=== PATIENT | female | born 1945 | race Caucasian/White ===

== ENCOUNTER 2021-10-16 15:58 | Inpatient (IN) | payer MEDICARE, OTHER ==
[~2021-10-16] VITALS: Ht 167.6 cm; Wt 90.3 kg
[2021-10-16] MEDS ORDERED: HYDR-3641 PO (16:20)
[2021-10-16] MEDS ORDERED: BUSP10TA3 PO (16:20)
[2021-10-16] MEDS ORDERED: CITA20TA16 PO (16:20)
--- NOTE | 2021-10-16 16:23 | NUR ---
PT IS IN ROOM #1B. DR CASE EVALUATED THE PT.
[2021-10-16] MEDS ORDERED: IV NORMAL SALINE 1000 ML BAG IV ONE (16:30)
[2021-10-16] MEDS ORDERED: PIPERACILLIN SODIUM/TAZOBACTAM 3.375 G in IV DEXTROSE 5% 50 ML IV ONE (16:30)
[2021-10-16] MEDS ORDERED: PIPERACILLIN/TAZOBACTAM/D5W 50 ML IV ONE (16:36)
[2021-10-16 16:37] LABS: HEMATOCRIT 43.8 % (31.2-41.9); MEAN CORPUSCULAR HEMOGLOBIN 28.3 uug (24.7-32.8); MEAN CORPUSCULAR VOLUME 88.2 fL (75.5-95.3); PLATELET COUNT (AUTO) 188 K/uL (179-408)
[2021-10-16 16:42] LABS: POTASSIUM 4.4 mmol/L (3.5-5.1)
--- NOTE | 2021-10-16 18:40 | NUR ---
Per (lashaun via pt's plastic surgeon), removed pt's in-dwelling briscoe cathether after deflation, urine sample sent to lab
[2021-10-16] MEDS ORDERED: ONDANSETRON 4 MG/2 ML VIAL IV PRN (18:45)
[2021-10-16] MEDS ORDERED: hydrOXYzine HCL 10 MG TABLET PO PRN (18:45)
[2021-10-16] MEDS ORDERED: MAGNESIUM HYDROXIDE 30 ML LIQUID UDC PO PRN (18:45)
[2021-10-16] MEDS ORDERED: REMEDY ESSENTIAL ZINC PASTE 113 GM TP PRN (18:45)
--- NOTE | 2021-10-16 19:22 | NUR ---
pt awake alert, pt given small amount of water, able to swallow well no coughing noted no change in tone of voice. pt aware she will be admitted to the hospital.
[2021-10-16 19:54] LABS: BILIRUBIN,DIRECT 0.1 mg/dL (0.0-0.2); BILIRUBIN,TOTAL 0.4 mg/dL (0.2-1.0)
--- NOTE | 2021-10-16 20:34 | NUR ---
report given to yanci DONALDSON pt to go to 327.
[2021-10-16 21:00] VITALS: BP 135/61
[2021-10-16] MEDS: busPIRone 10 MG TABLET PO SCH (21:00)
--- NOTE | 2021-10-16 21:00 | NUR ---
RECEIVED PATIENT FROM ED AT 2100 ADMITTED TO TELE. PATIENT IS AOX4. NO ACUTE DISTRESS NOTED. MIRZA ANURAG SURGICAL DRAIN IN PLACED ON THE NECK INTACT AND DRAINING. V/S WNL. NO PAIN COMPLAIN.
--- NOTE | 2021-10-16 21:07 | NUR ---
pt transfereed to room 330 via [facility] with all belongings. MENDOZA Willams and MENDOZA Mcghee at bedside to receive the pt.
[2021-10-16] MEDS ORDERED: ONDA4TAB5 PO (22:48)
[2021-10-16] MEDS ORDERED: ARNICA PO (22:48)
[2021-10-16] MEDS ORDERED: AZIT250T13 PO (22:48)
[2021-10-16] MEDS ORDERED: BROMELAIN PO (22:48)
[2021-10-16] MEDS ORDERED: ALPR0.255 PO (22:48)
[2021-10-16] MEDS ORDERED: METH4TAB3 PO (22:48)
[2021-10-16] MEDS ORDERED: CLON1PAT TD (22:48)
[2021-10-16] MEDS ORDERED: HYDR-3972 PO (22:48)
[2021-10-16] MEDS ORDERED: TRET20CR35 TP (23:25)
[2021-10-16] MEDS: PIPERACILLIN SODIUM/TAZOBACTAM 3.375 G in IV DEXTROSE 5% 100 ML IV SCH (23:52)
[2021-10-17] VITALS: BP 134/55
[2021-10-17] MEDS ORDERED: PIPERACILLIN SODIUM/TAZOBACTAM 3.375 G in IV DEXTROSE 5% 50 ML IV SCH ×2
[2021-10-17] MEDS ORDERED: HYDROCODONE/APAP 5-325MG TABLET PO PRN ×2 (03:45→06:30)
--- NOTE | 2021-10-17 03:46 | NUR ---
PATIENT COMPLAINED OF THROAT AND NECK PAIN. GAVE NORCO 3-325MG PRN PER MD ORDER. WILL REASSES IN 1 HR
[2021-10-17 04:00] VITALS: BP 113/52
--- NOTE | 2021-10-17 04:46 | NUR ---
DOROTHY EFFECTIVE. PATIENT SLEEPING SOUNDLY.
[2021-10-17 06:43] LABS: HEMATOCRIT 36.7 % (31.2-41.9); MEAN CORPUSCULAR HEMOGLOBIN 28.8 uug (24.7-32.8); MEAN CORPUSCULAR VOLUME 85.8 fL (75.5-95.3); PLATELET COUNT (AUTO) 183 K/uL (179-408)
[2021-10-17 06:57] LABS: MAGNESIUM 1.9 mg/dL (1.8-2.4); POTASSIUM 4.4 mmol/L (3.5-5.1)
[2021-10-17] MEDS: PIPERACILLIN SODIUM/TAZOBACTAM 3.375 G in IV DEXTROSE 5% 100 ML IV SCH (08:25)
[2021-10-17] MEDS: busPIRone 10 MG TABLET PO SCH (08:35)
[2021-10-17] MEDS ORDERED: CITALOPRAM 20 MG TABLET PO SCH (09:00)
[2021-10-17] MEDS ORDERED: AMOX1TAB16 PO (09:37)
[2021-10-17] MEDS ORDERED: hydrOXYzine HCL 10 MG TABLET PO SCH (09:45)
--- NOTE | 2021-10-17 13:06 | NUR ---
Patient discharged from unit at 1300. IV site removed. ID badge removed. Discharge education provided.
== END 2021-10-17 13:00 | disposition home or self-care (01) | DRG 205 ==
LOC: ER 15:58 → TELE3 20:35
PROVIDERS: ADMIT Nurse Practitioner Acute Care; ATTEND Nurse Practitioner Acute Care
DX: J95.89 Other postprocedural complications and disorders of respiratory system, not elsewhere classified (principal); J69.0 Pneumonitis due to inhalation of food and vomit; J96.01 Acute respiratory failure with hypoxia; D68.59 Other primary thrombophilia; E87.2 Acidosis; Y83.8 Other surgical procedures as the cause of abnormal reaction of the patient, or of later complication, without mention of misadventure at the time of the procedure; Y82.8 Other medical devices associated with adverse incidents; Y92.89 Other specified places as the place of occurrence of the external cause; Z20.822 Contact with and (suspected) exposure to COVID-19; E66.9 Obesity, unspecified; F32.A Depression, unspecified; F41.9 Anxiety disorder, unspecified; L30.9 Dermatitis, unspecified; Z68.32 Body mass index [BMI] 32.0-32.9, adult; M81.0 Age-related osteoporosis without current pathological fracture
CPT/HCPCS: 36415; 71045; 83605; 83735; 84100; 85025; 87040; 93005; A4663; G0378; J2543; J7040